=== PATIENT | male | born 1955 | race Two or more races ===

== ENCOUNTER 2024-05-23 07:17 | Emergency (ER) | payer OTHER ==
[~2024-05-23] VITALS: Ht 182.9 cm; Wt 113.4 kg
[2024-05-23] MEDS ORDERED: CEFTRIAXONE SODIUM 1,000 MG VIAL ONE (08:53)
[2024-05-23] MEDS ORDERED: CEFTRIAXONE SODIUM 1,000 MG VIAL IM ONE (09:00)
[2024-05-23] MEDS ORDERED: PEPCID AC20 MG PO (09:02)
[2024-05-23] MEDS ORDERED: CEPHALEXIN750 MG PO (09:02)
== END 2024-05-23 09:12 | disposition home or self-care (01) ==
LOC: ER 07:19
DX: S61.211A Laceration without foreign body of left index finger without damage to nail, initial encounter (principal); W45.8XXA Other foreign body or object entering through skin, initial encounter; Y93.89 Activity, other specified; Y92.89 Other specified places as the place of occurrence of the external cause; Y99.8 Other external cause status